=== PATIENT | male | born 1995 | race African-American/Black ===

== ENCOUNTER 2021-07-07 19:41 | Observation (INO) | payer OTHER ==
[2021-07-07 20:02] VITALS: BMI 31.0
[2021-07-07 21:14] LABS: BASO % 0.3 % (0-2.0); EOS % 0.5 % (0-4.5); HEMATOCRIT 43.9 % (35.4-49); HEMOGLOBIN 14.9 GM/dL (11.7-16.9); LYMPH % 8.8 % (8-40); MCH 29.6 pg (25.7-33.7); MEAN CELL VOLUME 86.8 fl (80-96); MEAN PLT VOLUME 9.5 fl (7.5-11.1); MONO % 9.2 % (3.8-10.2); NEUT % 81.2 % (42.8-82.8); PLATELET COUNT 162 10^3/uL (134-434); RBC 5.05 M/mm3 (4.00-5.60); RDW 14.5 % (11.9-15.9); WHITE BLOOD COUNT 13.4 K/mm3 (4.0-10.0)
[2021-07-07 21:21] LABS: INR 1.05 (0.83-1.09); PROTHROMBIN TIME (PATIENT) 12.9 SEC (9.7-13.0)
[2021-07-07 21:24] LABS: ACTIVATED PTT 24.5 SECONDS (25.2-36.5)
[2021-07-07 21:31] LABS: CHLORIDE 108 mmol/L (98-107); SODIUM 141 mmol/L (136-145)
[2021-07-07 21:35] LABS: ALBUMIN 4.4 g/dl (3.4-5.0); ANION GAP 6 MMOL/L (8-16); CALCIUM 9.1 mg/dL (8.5-10.1); CO2 27 mmol/L (21-32); GLUCOSE,RANDOM 84 mg/dL (74-106)
[2021-07-07 21:36] LABS: BLOOD UREA NITROGEN 19.8 mg/dL (7-18); MAGNESIUM 2.2 mg/dL (1.8-2.4)
[2021-07-07 21:38] LABS: CREATININE 0.9 mg/dL (0.55-1.3); SGOT/AST 42 U/L (15-37); SGPT/ALT 49 U/L (13-61)
[2021-07-07 21:40] LABS: BILIRUBIN,TOTAL 1.4 mg/dL (0.2-1); TOT PROT 7.8 g/dl (6.4-8.2)
[2021-07-07 21:41] LABS: ALK PHOS 87 U/L (45-117)
[2021-07-08] MEDS ORDERED: ALBUTEROL SO4 2.5/IPRATROPIUM 0.5 INH SOL 3 ML VIAL.NEB. NEB PRN (05:37)
[2021-07-08 06:06] LABS: PH,URINE 5.5 (5.0-8.0); URINE APPEARANCE CLEAR; URINE BILIRUBIN NEGATIVE (NEGATIVE); URINE COLOR YELLOW; URINE GLUCOSE (UA) NEGATIVE (NEGATIVE); URINE KETONE NEGATIVE (NEGATIVE); URINE LEUK ESTERASE NEGATIVE (NEGATIVE); URINE NITRITE NEGATIVE (NEGATIVE); URINE PROTEIN NEGATIVE (NEGATIVE)
[2021-07-08 06:15] LABS: METHADONE, UR NEGATIVE (NEGATIVE); OPIATES, URI NEGATIVE (NEGATIVE); URINE BARBITURATES NEGATIVE (NEGATIVE); URINE BENZODIAZEPINES NEGATIVE (NEGATIVE)
[2021-07-08 06:16] LABS: COCAINE, UR NEGATIVE (NEGATIVE); PHENCYCLIDINE,URINE NEGATIVE (NEGATIVE); URINE AMPHETAMINES NEGATIVE (NEGATIVE)
[2021-07-08] MEDS: ENOXAPARIN NA (PORCINE) 40 MG/0.4 ML DISP.SYRIN SQ SCH (12:03)
[2021-07-08] MEDS: SODIUM CHLORIDE 1,000 ML IV SCH (12:03)
[2021-07-08 13:30] LABS: BASO % 0.3 % (0-2.0); HEMOGLOBIN 15.5 GM/dL (11.7-16.9); MCH 30.2 pg (25.7-33.7); MCHC 34.6 g/dl (32.0-35.9); MEAN CELL VOLUME 87.3 fl (80-96); MEAN PLT VOLUME 10.2 fl (7.5-11.1); MONO % 12.5 % (3.8-10.2); NEUT % 61.2 % (42.8-82.8); PLATELET COUNT 168 10^3/uL (134-434); RBC 5.15 M/mm3 (4.00-5.60); RDW 14.5 % (11.9-15.9); WHITE BLOOD COUNT 6.8 K/mm3 (4.0-10.0)
[2021-07-08 13:50] LABS: CHLORIDE 110 mmol/L (98-107); SODIUM 143 mmol/L (136-145)
[2021-07-08 13:53] LABS: ALBUMIN 4.1 g/dl (3.4-5.0); CALCIUM 9.2 mg/dL (8.5-10.1)
[2021-07-08 13:54] LABS: ANION GAP 4 MMOL/L (8-16); BLOOD UREA NITROGEN 14.3 mg/dL (7-18); CO2 29 mmol/L (21-32); GLUCOSE,RANDOM 80 mg/dL (74-106); MAGNESIUM 2.3 mg/dL (1.8-2.4)
[2021-07-08 13:56] LABS: PHOSPHOROUS 3.5 mg/dL (2.5-4.9); SGOT/AST 31 U/L (15-37); SGPT/ALT 44 U/L (13-61); TRIGLYCERIDES 36 mg/dL (0-150)
[2021-07-08 13:57] LABS: BILIRUBIN,TOTAL 1.8 mg/dL (0.2-1); CHOLESTEROL 114 mg/dL (50-200); CREATININE 0.9 mg/dL (0.55-1.3)
[2021-07-08 13:58] LABS: LDL CHOLESTEROL (ONLY SJRH) 68 mg/dL (5-100); TOT PROT 7.5 g/dl (6.4-8.2)
[2021-07-08 13:59] LABS: ALK PHOS 79 U/L (45-117); HDL CHOLESTEROL 40 mg/dL (40-60)
[2021-07-08] MEDS ORDERED: FLU VACC QS2021-22(6MOS UP)/PF 60 MCG/0.5 ML SYRINGE IM ONE (14:00)
[2021-07-08] MEDS ORDERED: PT OWN MED DRAWER 7, Y5N ONE (15:30)
[2021-07-08] MEDS: MONTELUKAST NA 5 MG TAB.CHEW PO SCH (22:35)
[2021-07-09 08:33] LABS: BASO % 0.4 % (0-2.0); EOS % 1.6 % (0-4.5); HEMOGLOBIN 15.5 GM/dL (11.7-16.9); LYMPH % 23.6 % (8-40); MCH 30.4 pg (25.7-33.7); MCHC 34.4 g/dl (32.0-35.9); MEAN CELL VOLUME 88.5 fl (80-96); MEAN PLT VOLUME 9.8 fl (7.5-11.1); MONO % 12.1 % (3.8-10.2); NEUT % 62.3 % (42.8-82.8); PLATELET COUNT 161 10^3/uL (134-434); RBC 5.09 M/mm3 (4.00-5.60); RDW 14.5 % (11.9-15.9); WHITE BLOOD COUNT 6.7 K/mm3 (4.0-10.0)
[2021-07-09 08:55] LABS: CALCIUM 8.8 mg/dL (8.5-10.1)
[2021-07-09 08:56] LABS: ALBUMIN 3.9 g/dl (3.4-5.0); MAGNESIUM 1.9 mg/dL (1.8-2.4)
[2021-07-09 08:58] LABS: BLOOD UREA NITROGEN 12.2 mg/dL (7-18)
[2021-07-09 08:59] LABS: CREATININE 0.9 mg/dL (0.55-1.3); PHOSPHOROUS 3.5 mg/dL (2.5-4.9)
[2021-07-09 09:00] LABS: BILIRUBIN,TOTAL 1.4 mg/dL (0.2-1); TOT PROT 7.4 g/dl (6.4-8.2)
[2021-07-09] MEDS: SODIUM CHLORIDE 1,000 ML IV SCH (09:37)
[2021-07-09] MEDS: ENOXAPARIN NA (PORCINE) 40 MG/0.4 ML DISP.SYRIN SQ SCH (09:46)
[2021-07-09] MEDS ORDERED: PT OWN MED DRAWER 7, Y5N ONE (21:54)
[2021-07-09] MEDS: MONTELUKAST NA 5 MG TAB.CHEW PO SCH (22:33)
[2021-07-10] MEDS: ENOXAPARIN NA (PORCINE) 40 MG/0.4 ML DISP.SYRIN SQ SCH (10:46)
[2021-07-10] MEDS ORDERED: ALBUTEROL SO4 HFA INHALER IH PRN (12:54)
[2021-07-10] MEDS ORDERED: PT OWN MED DRAWER 7, Y5N ONE (21:36)
[2021-07-10] MEDS: MONTELUKAST NA 5 MG TAB.CHEW PO SCH (22:00)
[2021-07-11 07:26] LABS: BASO % 0.3 % (0-2.0); EOS % 1.8 % (0-4.5); HEMATOCRIT 45.2 % (35.4-49); HEMOGLOBIN 15.7 GM/dL (11.7-16.9); LYMPH % 22.3 % (8-40); MCH 30.3 pg (25.7-33.7); MCHC 34.8 g/dl (32.0-35.9); MEAN CELL VOLUME 87.1 fl (80-96); MEAN PLT VOLUME 10.1 fl (7.5-11.1); NEUT % 61.6 % (42.8-82.8); PLATELET COUNT 168 10^3/uL (134-434); RBC 5.19 M/mm3 (4.00-5.60); RDW 14.2 % (11.9-15.9); WHITE BLOOD COUNT 6.1 K/mm3 (4.0-10.0)
[2021-07-11 07:40] LABS: CALCIUM 8.8 mg/dL (8.5-10.1)
[2021-07-11 07:41] LABS: ALBUMIN 3.9 g/dl (3.4-5.0); BLOOD UREA NITROGEN 15.2 mg/dL (7-18); MAGNESIUM 1.8 mg/dL (1.8-2.4)
[2021-07-11 07:46] LABS: TOT PROT 7.4 g/dl (6.4-8.2)
[2021-07-11 07:47] LABS: BILIRUBIN,TOTAL 1.3 mg/dL (0.2-1)
[2021-07-11] MEDS: ENOXAPARIN NA (PORCINE) 40 MG/0.4 ML DISP.SYRIN SQ SCH (09:50)
[2021-07-11] MEDS ORDERED: MONTELUKAST NA 10 MG TABLET PO ONE (10:00)
[2021-07-11 15:33] VITALS: BP 118/77; PULSE 88; TEMP 98.5
[2021-07-12 10:12] LABS: SARS-CoV-2 NAA Not Detected (Not Detected)
[2021-07-12] MEDS ORDERED: MONTELUKAST NA 5 MG TAB.CHEW PO SCH (22:00)
== END 2021-07-11 19:38 | disposition home or self-care (01) ==
LOC: JER 19:41 → UNDOADMOB 23:39 → INTOOBSV 23:39 → JERBED 23:39 → J4W 07-08 08:48 → JERBED 07-08 08:48 → J4W 07-08 13:39 → JERBED 07-08 13:39
PROVIDERS: ADMIT Internal Medicine
PROC: 3E0F7GC Introduction of Other Therapeutic Substance into Respiratory Tract, Via Natural or Artificial Opening (ICD-10-PCS; principal; 2021-07-08)
PROC: 3E023GC Introduction of Other Therapeutic Substance into Muscle, Percutaneous Approach (ICD-10-PCS; 2021-07-08)
PROC: 3E0234Z Introduction of Serum, Toxoid and Vaccine into Muscle, Percutaneous Approach (ICD-10-PCS; 2021-07-08)
DX: R94.31 Abnormal electrocardiogram [ECG] [EKG] (principal); T67.1XXA Heat syncope, initial encounter; E66.9 Obesity, unspecified; Z68.31 Body mass index [BMI] 31.0-31.9, adult; D57.3 Sickle-cell trait; J45.909 Unspecified asthma, uncomplicated; R00.2 Palpitations; Z23 Encounter for immunization; R06.00 Dyspnea, unspecified
CPT/HCPCS: 36415; 71046-TC-FY; 76705-TC; 80053; 80061; 80307; 81003; 82550; 82553; 83036; 83735; 84100; 84443; 84484; 85025; 85610; 85730; 86705; 86706; 86708; 86769; 86803; 87086; 87340; 87517; 90686; 93005; 93010; 93306-TC; 93351; 93880-TC; 94150; 94640; 96372; 99285-25; C9803; G0378; U0003; U0005

== ENCOUNTER 2021-07-13 15:35 | Emergency (ER) | payer OTHER ==
[2021-07-13 16:49] VITALS: BP 128/87; PULSE 83; TEMP 98.2; BMI 31.0
[2021-07-13] MEDS ORDERED: predniSONE 20 MG TABLET (UD) PO ONE (17:08)
[2021-07-13] MEDS ORDERED: predniSONE 20 MG TABLET (UD) ONE (17:40)
== END 2021-07-13 17:46 | disposition home or self-care (01) ==
LOC: JERFT 15:35 → JER 15:35 → JERFT 17:46
DX: J45.901 Unspecified asthma with (acute) exacerbation (principal)
CPT/HCPCS: 93005; 93010; 99283-25

== ENCOUNTER 2021-07-15 15:29 | Emergency (ER) | payer OTHER ==
[2021-07-15 15:44] VITALS: BP 137/87; PULSE 79; TEMP 97.4; BMI 29.2
[2021-07-15] MEDS ORDERED: MAG HYDROX/AL HYDROX/SIMETH 30 ML UNIT-DOSE CUP ONE ×2 (15:48→16:00)
[2021-07-15] MEDS ORDERED: MAG HYDROX/AL HYDROX/SIMETH 30 ML UNIT-DOSE CUP PO ONE (15:59)
== END 2021-07-15 17:20 | disposition home or self-care (01) ==
LOC: JER 15:29 → JERFT 15:29
DX: R10.84 Generalized abdominal pain (principal)
CPT/HCPCS: 99283-25